=== PATIENT | male | born 1990 | race Caucasian/White ===

== ENCOUNTER 2022-01-10 18:50 | Emergency (ER) | payer OTHER, MEDICAID, SELFPAY ==
[2022-01-10 19:22] VITALS: BP 143/61; PULSE 67; RESP 18; TEMP 36.4; O2SAT 99; BMI 25.4
--- NOTE | 2022-01-10 21:08 | ED.SKABFB ---
HPI - Skin/Abscess/Foreign Bdy General Chief complaint: Skin/Abscess/Foreign Body Stated complaint: feels like stepping on needles; toes swollen/red Time Seen by Provider: 01/10/22 20:57 Source: patient Mode of arrival: Ambulatory Limitations: no limitations History of Present Illness HPI narrative: Patient is a 31-year-old male here for evaluation of he states is athlete's foot. He states that he feels like his toes are red and swollen and she also feels like he is stepping on needles. He has been having issues with please foot in the past and has tried [id number] creams and lotions and powders without much improvement. He does work and area where he is standing on his feet and states that his feet do sweat quite a bit and he is in shoes and socks most the time. Related Data Home Medications Medication Instructions Recorded Confirmed lamotrigine 100 mg tablet 100 mg PO BID 01/10/22 01/10/22 paroxetine HCl 10 mg tablet 10 mg PO DAILY 01/10/22 01/10/22 Allergies Allergy/AdvReac Type Severity Reaction Status Date / Time No Known Drug Allergies Allergy Verified 01/10/22 19:26 Review of Systems Constitutional Constitutional: Reports system reviewed and no additional complaints, except as documented Integumentary/Breasts Skin/Breast: Reports system reviewed and no additional complaints, except as documented Neurologic Neurologic: Reports system reviewed and no additional complaints, except as documented and Reports as per HPI Hematologic/Lymphatic On Anticoagulants: No Patient History Medical History Healthy adult Social History Smoking Status: Former smoker Smoking Status: Former smoker alcohol intake frequency: 0-2 drinks per day Substance Use Type: marijuana Exam Initial Vital Signs Initial Vital Signs: Vital Signs Temperature 97.5 F L 01/10/22 19:22 Pulse Rate 67 01/10/22 19:22 Respiratory Rate 18 01/10/22 19:22 Blood Pressure 143/61 H 01/10/22 19:22 Pulse Oximetry 99 01/10/22 19:22 HENMT Head: normal to inspection Cardio Pulses: dorsalis pedis present bilaterally Skin Other: Redness and cracking of toes in bilateral feet. Neuro General: patient alert and patient awake Sensory Exam: no sensory deficits noted Extrem Other: Patient with redness and cracking of his toes. Course Vital Signs Vital signs: Vital Signs - 8 hr 01/10/22 19:22 Temperature 97.5 F L Pulse Rate 67 Respiratory Rate 18 Blood Pressure 143/61 H Pulse Oximetry 99 MDM - Skin/Abscess/Foreign Bdy MDM Narrative Medical decision making narrative: History and physical exam is consistent with tinea pedis. There is no signs infection we did discuss the importance of keeping his feet dry and clean and cool. No indication for any oral antibiotics or antifungal medication now. Discussed return precautions follow-up instructions. Patient expressed understanding and agreement. Discharge Plan Departure Patient Disposition: Home Clinical Impression: Athlete's foot Instructions: Athlete's Foot (Alternative Therapy) Activity Restrictions/Additional Instructions: It is important that you keep your feet as clean and dry as possible. Use the orders like we discussed when you are wearing issues hand change your socks often. Return to the emergency department for any new or worsening symptoms. Prescriptions: No Action paroxetine HCl 10 mg tablet 10 mg PO DAILY 0RF Label Comments: TAKE ONE TABLET BY MOUTH ONE TIME DAILY lamotrigine 100 mg tablet 100 mg PO BID 0RF Label Comments: TAKE ONE TABLET BY MOUTH TWICE DAILY Stand Alone Forms: Work Release Note
== END 2022-01-10 21:23 | disposition home or self-care (01) ==
PROVIDERS: Emergency Provider Emergency Medicine
DX: B35.3 Tinea pedis (principal)
CPT/HCPCS: 99281

== ENCOUNTER 2022-01-13 10:33 | Emergency (ER) | payer OTHER, MEDICAID, SELFPAY ==
--- NOTE | 2022-01-13 11:21 | PC.NURSE ---
Visualized upon entry to ED, no acute distress.
[2022-01-13 11:26] VITALS: BP 137/84; PULSE 64; RESP 16; TEMP 36.5; O2SAT 99; BMI 25.4
[2022-01-13 12:59] LABS: Bacteria Urine None Seen; Culture Indicated Urine Cult Not Indicated; RBC Urine 0-1/HPF (0-5/HPF); Squamous Epithelial Cell Urine 0-1 /HPF (0-5/HPF); WBC Urine 0-1/HPF (0-5/HPF)
--- NOTE | 2022-01-13 13:17 | DI.US.S_ITS ---
PROCEDURE: US SCROTUM INDICATIONS: PAIN, OCCASIONAL SWELLING TECHNIQUE: Real-time scanning was performed of the scrotum and testicles, with image documentation. Color and pulse Doppler interrogation was performed of both testicles. COMPARISON: None. FINDINGS: Right: Testicle is normal in size at 5.7 x 2.6 x 3.5 cm, and homogenous in echotexture. Epididymis is normal in overall size and morphology. Small cyst is seen in right epididymis measures 2 mm in size. No hydrocele or varicoceles. Overlying scrotal skin is normal in thickness. Left: Testicle is normal in size at 5.5 x 2.7 x 3 cm, and homogeneous in echotexture. Epididymis is normal in overall size and morphology. Small cysts are also seen in left epididymis measures up to 3 mm in size. No hydrocele or varicoceles. Overlying scrotal skin is normal in thickness. Doppler: Color and pulse Doppler demonstrate normal and symmetric arterial flow in both testicles. IMPRESSION: Tiny cysts seen in bilateral epididymi. Otherwise unremarkable ultrasound examination of bilateral testes and scrotum. Dictated by: Dickson Faria M.D. on 01/13/2022 at 14:18 Approved by: Dickson Faria M.D. on 01/13/2022 at 14:23
--- NOTE | 2022-01-13 14:20 | ED.MALEGU ---
HPI - Male Genitourinary General Chief complaint: Urogenital-Male Stated complaint: Urogenital pain Time Seen by Provider: 01/13/22 10:54 Source: patient and family Mode of arrival: Ambulatory History of Present Illness HPI Narrative: 31-year-old male former smoker with history of mental health disease and recent diagnosis of athlete's foot presents with his significant other and a chief complaint of inability to ejaculate over past 2 weeks. He has no difficulty obtaining or maintaining an erection and has a very strong sex drive. He denies any recent trauma or injury. He has no back pain or radicular symptoms such as numbness, tingling or weakness. He denies any saddle anesthesia or loss of control of bowel or bladder. He was relatively recently started on lamotrigine but otherwise denies new medication or dietary change. He denies any history of the same Related Data Home Medications Medication Instructions Recorded Confirmed lamotrigine 100 mg tablet 100 mg PO BID 01/10/22 01/10/22 paroxetine HCl 10 mg tablet 10 mg PO DAILY 01/10/22 01/10/22 Allergies Allergy/AdvReac Type Severity Reaction Status Date / Time No Known Drug Allergies Allergy Verified 01/10/22 19:26 Review of Systems Review of Systems Narrative: GENERAL: Denies chills, fatigue, malaise, fever, sweats. HEENT: Denies sinus pain, ear pain, sore throat, difficulty swallowing, dizziness. RESPIRATORY: Denies dyspnea, cough, wheezing, hemoptysis, sputum. CARDIOVASCULAR: Denies chest pain, palpitations, orthopnea, edema, GASTROINTESTINAL: Denies nausea, vomiting, abdominal pain, diarrhea, constipation, melena. : See HPI MUSCULOSKELETAL: denies weakness, joint pain, or bony pain SKIN: Denies rash, skin lesions, or other NEUROLOGIC: Denies weakness, headache, numbness, change in speech, confusion, seizures, incoordination. PSYCHIATRIC: No concerning psychosocial issues. 12 point review of systems is negative except for those stated above Patient History Medical History Healthy adult Social History Smoking Status: Former smoker Smoking Status: Former smoker alcohol intake frequency: 0-2 drinks per day Substance Use Type: marijuana Exam Narrative Exam Narrative: GENERAL: [31] year old patient appears stated age. Well-developed patient, in mild distress. HEAD: Atraumatic. Normocephalic. EYES: Pupils equal round and reactive. Extraocular motions intact. No scleral icterus. No injection or drainage. ENT: Nose without bleeding, purulent drainage. Throat without erythema, tonsillar hypertrophy or exudate. Airway patent. NECK: Trachea midline. Non tender CARDIOVASCULAR: Regular rate and rhythm without murmurs, gallops, or rubs. RESPIRATORY: Clear to auscultation. Breath sounds equal bilaterally. No wheezes, rales, or rhonchi. GASTROINTESTINAL: Abdomen soft, non-tender, nondistended. : No testicular pain, swelling or discoloration. No penile pain or discoloration, no drainage EXTREMITIES: No edema or joint tenderness. BACK: Nontender without deformity or crepitance. No flank tenderness. NEURO: AOx3. SKIN: No rash or erythema of visible areas Initial Vital Signs Initial Vital Signs: Vital Signs Temperature 97.7 F 01/13/22 11:26 Pulse Rate 64 01/13/22 11:26 Respiratory Rate 16 01/13/22 11:26 Blood Pressure 137/84 01/13/22 11:26 Pulse Oximetry 99 01/13/22 11:26 Course Orders Ordered: ED Orders 01/13/22 11:43 Urine Microscopic Stat 01/13/22 13:17 US scrotum Stat Vital Signs Vital signs: Vital Signs - 8 hr 01/13/22 11:26 Temperature 97.7 F Pulse Rate 64 Respiratory Rate 16 Blood Pressure 137/84 Pulse Oximetry 99 MDM - Male Genitourinary Lab Data Labs: Lab Results 01/13/22 Range/Units 11:43 Urine RBC 0-1/hpf (0-5/HPF) Urine WBC 0-1/hpf (0-5/HPF) Ur Squamous Epith Cells 0-1 /hpf (0-5/HPF) Urine Bacteria None seen (None) Ur Culture Indicated? Cult not indicated Urine Dip Bedside Urine Glucose Negative Bedside Urine Bilirubin - Negative Bedside Urine Ketone - Negative Urine Specific [place] 1.015 Bedside Urine Occult Blood +/- Bedside Urine pH 6.5 Bedside Urine Protein - Negative Bedside Urine Urobilinogen - Negative Bedside Urine Nitrite - Negative Bedside Urine Leukocytes - Negative Esterase Imaging Data Testicular US: Radiologist's Impression: [address] [address] Ultrasound Report Signed Patient: Sushant Whitlock MR#: [id number] : 1990 Acct:[id number] Age/Sex: 31 / M Date of Service: 01/13/22 Loc: ED Accession Number: [id number] ?? Procedure: US scrotum Ordering Provider: Sushant Rosa D.O. PROCEDURE:? US SCROTUM ? INDICATIONS:? PAIN, OCCASIONAL SWELLING ? TECHNIQUE:? Real-time scanning was performed of the scrotum and testicles, with image documentation.? Color and pulse Doppler interrogation was performed of both testicles.? ? COMPARISON:? None. ? FINDINGS:? ? Right:? Testicle is normal in size at 5.7 x 2.6 x 3.5 cm, and homogenous in echotexture.? Epididymis is normal in overall size and morphology.? Small cyst is seen in right epididymis measures 2 mm in size.? No hydrocele or varicoceles.? Overlying scrotal skin is normal in thickness.? ? Left:? Testicle is normal in size at 5.5 x 2.7 x 3 cm, and homogeneous in echotexture.? Epididymis is normal in overall size and morphology.? Small cysts are also seen in left epididymis measures up to 3 mm in size.? No hydrocele or varicoceles.? Overlying scrotal skin is normal in thickness.? ? Doppler:? Color and pulse Doppler demonstrate normal and symmetric arterial flow in both testicles.? ? IMPRESSION:? Tiny cysts seen in bilateral epididymi.? Otherwise unremarkable ultrasound examination of bilateral testes and scrotum. ? ? Dictated by: Dickson Faria M.D. on 01/13/2022 at 14:18 ? ? Approved by: Dickson Faria M.D. on 01/13/2022 at 14:23 ? Discharge Plan Departure Patient Disposition: Home Clinical Impression: Anejaculation Activity Restrictions/Additional Instructions: *You have been diagnosed with [anejaculation.] Your physical exam, ultrasound and urine are very reassuring. I discussed the case with urology who had no significant recommendations currently, though they do suggest that this is often not an organic problem *What to do: *Please continue to take your regular medications as directed. [ ] New medication prescriptions sent to your pharmacy: [ ] [ ] New medication written as a paper prescription [ x] No new medications given *Please follow up with your primary care provider in 2-3 days, call for an appointment. Let them know you were seen in the Emergency Department and that we ask that you be seen in follow up. We will electronically transmit a record of today's note if your PCP is in our system *If you do not have a primary care provider please contact the [facility] Resource line at [phone]. They will ask some questions about your medical history and help get you set up with a doctor in the community. *Return to Emergency Department if you should have any new, worsening or concerning symptoms, such as [fever greater than 101 F, shaking chills, worsening pain, persistent vomiting or other bothersome symptoms] Prescriptions: No Action paroxetine HCl 10 mg tablet 10 mg PO DAILY 0RF Label Comments: TAKE ONE TABLET BY MOUTH ONE TIME DAILY lamotrigine 100 mg tablet 100 mg PO BID 0RF Label Comments: TAKE ONE TABLET BY MOUTH TWICE DAILY Referrals: Abrahan Serrano MD [Physician] -
== END 2022-01-13 15:02 | disposition home or self-care (01) ==
PROVIDERS: Emergency Provider Emergency Medicine
DX: N53.13 Anejaculatory orgasm (principal)
CPT/HCPCS: 76870; 81003; 81015; 99283